=== PATIENT | male | born 1970 | race Caucasian/White ===

== ENCOUNTER → 2019-09-12 | Outpatient (CLI) | payer BC ==
--- NOTE | 2019-09-12 16:27 | KCIC ---
EYE FOR FOREIGN BODY History: MRI protocol clearance. History of metalworking. Technique: 2 views of the orbits. Comparison: None. Findings: No metallic foreign body. Normal alignment. Impression: 1. No radiographic evidence of metallic foreign body. Electronically signed by: Gm Wells DO (09/12/2019 4:24 PM) [email or web address]
--- NOTE | 2019-09-13 08:55 | KCIC ---
CERVICAL SPINE WO CONTRAST History: Neck pain. Left radiculopathy. Technique: Multiplanar, multi sequential noncontrast MR imaging was performed of the cervical spine. Comparison: None Findings: Normal vertebral body height and alignment. No fracture. Normal appearance of the cervical spinal cord. No pathologic signal abnormality. C2-C3: No canal narrowing. Facet arthropathy, right greater than left. Minimal right neuroforaminal narrowing. No left neuroforaminal narrowing. C3-C4: Minimal posterior disc bulge. No canal narrowing. Left uncovertebral and bilateral facet arthropathy. Minimal left neuroforaminal narrowing. No right neuroforaminal narrowing. C4-C5: Central small disc extrusion extending inferiorly. Partial effacement of ventral CSF space. Mild cord flattening. Uncovertebral and facet arthropathy. Mild right neuroforaminal narrowing. No left neuroforaminal narrowing. C5-C6: Posterior disc osteophyte complex with left lateral and foraminal disc protrusion. Severe left neuroforaminal narrowing. Mild canal narrowing. Cord flattening. Uncovertebral and facet arthropathy. Moderate right neuroforaminal narrowing. C6-C7: Small posterior disc bulge. No canal narrowing. Uncovertebral and facet arthropathy. Mild bilateral neural foraminal narrowing. C7-T1: Minimal left neuroforaminal narrowing. Facet arthropathy. No right neuroforaminal narrowing. No canal narrowing. Impression: 1. Multilevel cervical spondylosis most prominent C4-C5 and C5-C6. 2. C5-C6 left lateral and foraminal disc protrusion contributing to severe left neuroforaminal narrowing. Correlate for radiculopathy. 3. Small C4-C5 central disc extrusion extending inferiorly. Electronically signed by: Gm Wells DO (09/13/2019 8:52 AM) [id number]
== END ==
LOC: KCIC MRI 15:59
PROVIDERS: ATTEND Family Medicine
DX: M47.22 Other spondylosis with radiculopathy, cervical region (principal); M50.11 Cervical disc disorder with radiculopathy, high cervical region; M48.03 Spinal stenosis, cervicothoracic region; M25.78 Osteophyte, vertebrae; M46.83 Other specified inflammatory spondylopathies, cervicothoracic region
CPT/HCPCS: 70030; 72141